=== PATIENT | female | born 1970 | race Two or more races ===

== ENCOUNTER 2021-04-10 09:51 | Emergency (ER) | payer SELFPAY ==
[~2021-04-10] VITALS: Ht 165.1 cm; Wt 106.0 kg
[~2021-04-10 09:51] MED LIST: DEXT20TA2 PO; DULO60CA6 PO; FLUT12AE IH; HYDR-2769 PO; METO-239 PO; METO50TA4 PO; MONT10TA49 PO; PRED-220 PO
[2021-04-10] MEDS ORDERED: HYDROcodone/APAP 5/325MG 1 TAB TABLET PO ONE (11:45)
[2021-04-10] MEDS ORDERED: ALPRAZolam 0.5 MG TABLET PO ONE (11:45)
[2021-04-10] MEDS ORDERED: METOPROLOL TART IMMED RELEASE 50 MG TABLET. PO ONE (11:45)
[2021-04-10] MEDS ORDERED: ALPR1TAB6 PO (12:16)
[2021-04-10] MEDS ORDERED: METO50TA6 PO (12:16)
[2021-04-10] MEDS ORDERED: HYDR-2761 PO (12:16)
--- NOTE | 2021-04-10 12:19 | PHYS DOC ---
Past Medical History Past Medical History: Anxiety, Hypertension, Other Additional Past Medical Histor: ADHD, [place] DX, CHRONIC PAIN, UTI'S Past Surgical History: No Surgical History Smoking Status: Current Some Day Smoker Alcohol Use: None Drug Use: None General Adult EDM: Chief Complaint: MEDICATION REFILL HPI: HPI: Patient is a 50 year old female with a history of anxiety, hypertension, chronic low back pain, who presents to the ED today requesting a short supply of some of her medications. Patient is on metoprolol, Xanax and hydrocodone. She states her PCP Dr. Richards has transferred to another clinic and they are not able to get in with a new provider anytime soon and she is out of her medications. Patient denies any chest pain, denies any shortness of breath. She states she feels anxious and her heart is pounding. Review of Systems: Review of Systems: Constitutional: Denies fever or chills. [] Eyes: Denies change in visual acuity. [] HENT: Denies nasal congestion or sore throat. [] Respiratory: Denies cough or shortness of breath. [] Cardiovascular: Reports her heart is pounding. Denies chest pain or edema. [] GI: Denies abdominal pain, nausea, vomiting, bloody stools or diarrhea. [] : Denies dysuria. [] Musculoskeletal: Reports low back pain Integument: Denies rash. [] Neurologic: Denies headache, focal weakness or sensory changes. [] Psychiatric: Reports anxiety Heart Score: C/O Chest Pain: N/A Risk Factors: Risk Factors: DM, Current or recent (<one month) smoker, HTN, HLP, family history of CAD, obesity. Risk Scores: Score 0 - 3: 2.5% MACE over next 6 weeks - Discharge Home Score 4 - 6: 20.3% MACE over next 6 weeks - Admit for Clinical Observation Score 7 - 10: 72.7% MACE over next 6 weeks - Early Invasive Strategies Current Medications: Current Medications Medications (Trade) Dose Ordered Sig/Vincent Start Time Stop Time Status Last Admin Dose Admin Acetaminophen/ Hydrocodone Bitart (Lortab 5/325) 1 tab 1X ONCE 04/10/21 11:45 04/10/21 11:46 DC 04/10/21 11:49 1 TAB Alprazolam (Xanax) 1 mg 1X ONCE 04/10/21 11:45 04/10/21 11:46 DC 04/10/21 11:49 1 MG Metoprolol Tartrate (Lopressor) 50 mg 1X ONCE 04/10/21 11:45 04/10/21 11:46 DC 04/10/21 11:49 50 MG Allergies: Allergies: Allergies Coded Allergies Type Severity Reaction Last Updated Verified NSAIDS (Non-Steroidal Anti-Inflamma Allergy Severe Anaphylaxis 04/10/21 Yes aspirin Allergy Severe Anaphylaxis 04/10/21 Yes Physical Exam: PE: Constitutional: Well developed, well nourished, no acute distress, non-toxic appearance. [] HENT: Normocephalic, atraumatic, bilateral external ears normal, oropharynx moist, no oral exudates, nose normal. [] Eyes: PERRLA, EOMI, conjunctiva normal, no discharge. [] Neck: Normal range of motion, no tenderness, supple, no stridor. [] Cardiovascular: Tachycardia. Lungs & Thorax: Bilateral breath sounds clear to auscultation [] Abdomen: Bowel sounds normal, soft, no tenderness, no masses, no pulsatile masses. [] Skin: Warm, dry, no erythema, no rash. [] Back: No tenderness, no CVA tenderness. [] Extremities: No tenderness, no cyanosis, no clubbing, ROM intact, no edema. [] Neurologic: Alert and oriented X 3, normal motor function, normal sensory function, no focal deficits noted. [] Psychologic: Affect normal, judgement normal, mood normal. [] Current Patient Data: Vital Signs: Vital Signs Date Time Temp Pulse Resp B/P (MAP) Pulse Ox O2 Delivery O2 Flow Rate FiO2 04/10/21 11:49 Room Air 04/10/21 11:49 112 04/10/21 09:57 98.8 20 211/96 99 98.8 EKG: EK interpreted by Dr. Garcia sinus rhythm heart rate 97 no STEMI [] Radiology/Procedures: Radiology/Procedures: [] Course & Med Decision Making: Course & Med Decision Making Pertinent Labs and Imaging studies reviewed. (See chart for details) This is a 50-year-old female patient presenting to the ED today for medication refill for Xanax alprazolam and metoprolol. Patient received the medicines from Dr. Richards who has transferred to a different clinic, she is not able to get in with a new provider. Her K tracs shows she gets her medicines consistently from Dr. Richards. Short supply of the medication was given to patient and she was discharged to home. Her blood pressure was 211/96 with a heart rate of 113. History of hypertension. She was given metoprolol in the ED. Willie Disclaimer: Willie Disclaimer: This electronic medical record was generated, in whole or in part, using a voice recognition dictation system. Departure Departure Impression: Primary Impression: Anxiety Additional Impressions: Medication refill Hypertension Qualified Codes: I10 - Essential (primary) hypertension Disposition: HOME / SELF CARE / HOMELESS Condition: STABLE Referrals: NO PCP (PCP) Patient Instructions: Anxiety and Panic Attacks Additional Instructions: Please establish care with another provider. We gave you a doctor's list, look at the list and pick a doctor you can follow-up with. Scripts Hydrocodone Bit/Acetaminophen (HYDROCODONE-APAP 5-325 ) 1 Tab Tablet 1 TAB PO PRN Q6HRS PRN for PAIN, #20 TAB 0 Refills Prov: DEB PATE APRN 04/10/21 Alprazolam (ALPRAZOLAM) 1 Mg Tablet 1 TAB PO TID, #21 TAB Prov: DEB PATE APRN 04/10/21 Metoprolol Tartrate (METOPROLOL TARTRATE) 50 Mg Tablet 1 TAB PO BID, #60 TAB 5 Refills Prov: DEB PATE APRN 04/10/21 DEB PATE APRN Apr 10, 2021 12:18
[2021-04-10 12:40] VITALS: BP 180/75
== END 2021-04-10 12:41 | disposition home or self-care (01) ==
LOC: ER 09:51
DX: F41.9 Anxiety disorder, unspecified (principal); I10 Essential (primary) hypertension; Z76.0 Encounter for issue of repeat prescription; M54.5 Low back pain; G89.29 Other chronic pain; F90.9 Attention-deficit hyperactivity disorder, unspecified type; F17.200 Nicotine dependence, unspecified, uncomplicated; Z88.6 Allergy status to analgesic agent; Z88.8 Allergy status to other drugs, medicaments and biological substances
CPT/HCPCS: 99284